=== PATIENT | female | born 1960 | race Caucasian/White ===

== ENCOUNTER 2016-10-20 19:03 | Emergency (ER) | payer OTHER ==
[~2016-10-20] VITALS: Ht 172.7 cm; Wt 104.3 kg
--- NOTE | 2016-10-20 20:37 | ED GENERAL ADULT ---
History of Present Illness General Chief Complaint: General Adult Stated Complaint: ELEVATED BP PER PT Source: patient Exam Limitations: no limitations Vital Signs & Intake/Output Vital Signs & Intake/Output Vital Signs Date Time Temp Pulse Resp B/P B/P Pulse O2 O2 Flow FiO2 Mean Ox Delivery Rate 10/20 2229 89 20 150/109 98 Room Air 10/20 2201 100 180/110 10/20 2145 100 194/110 10/20 2051 100 190/120 10/20 1926 98.3 101 16 198/112 98 Room Air ED Intake and Output 10/21 0000 10/20 1200 Intake Total Output Total Balance Patient 230 lb Weight Weight Reported by Patient Measurement Method Allergies Coded Allergies: No Known Allergies (10/20/16) Reconcile Medications Azithromycin (Zithromax) 500 MG TABLET 1 TAB PO DAILY LEFT OTITIS MEDIA Lisinopril 10 MG TABLET 1 TAB PO DAILY HYPERTENSION Triage Note: TRIAGE: ARRIVES WITH CONCERN FOR BP WHICH SHE REPORTS IS LABILE. TOOK HER HUSBANDS NORVASC 10MG AT 5PM WITH NO IMPROVEMENT. ARRIVES 198/112 MANUALLY AND HR 102. DENIES HEADACHE, NEUROS INTACT WITHOUT FOCAL DEFICITS. PUPILS EQUAL AND REATIVE. C/O LEFT EAR PAIN X2 WEEKS Triage Nurses Notes Reviewed? yes Onset: Gradual Duration: constant Timing: recent history Injury Environment: home Severity: moderate Severity Numbers: 5 HPI: Patient is a 56-year-old female with a remote history of hypertension who stated approximately 10 years ago she was on Norvasc 10 mg for only one year in which she states that her blood pressure has been stable since in which she goes to regular [facility] follow-ups. Patient does not have a primary care doctor. Patient is complaining of a gradual onset of left ear fullness and pain Patient was evaluated at urgent care facility this week and was concerned of patient's significant blood pressure elevation. Patient denies any fever chills headache blurred vision chest pain shortness breath abdominal pain nausea vomiting and is otherwise without complaints. Patient does however state that she took her 's 25 mg of Lopressor and 10 mg of Norvasc today for her elevated blood pressure noted to be 240/120 (MAURY GARDINER) Past History Travel History Traveled to [place] past 21 day No Medical History Any Pertinent Medical History? see below for history Neurological: NONE EENT: NONE Cardiovascular: hypertension Respiratory: NONE Gastrointestinal: NONE Hepatic: NONE Renal: NONE Musculoskeletal: NONE Psychiatric: NONE Endocrine: NONE Blood Disorders: NONE Cancer(s): NONE Surgical History Surgical History: non-contributory Psychosocial History What is your primary language Greenlandic Tobacco Use: Current Daily Use Daily Tobacco Use Amount/Type: => 5 Cigarettes daily ETOH Use: occasional use Illicit Drug Use: denies illicit drug use Family History Hx Contributory? No (MAURY GARDINER) Review of Systems Review of Systems Constitutional: Reports: no symptoms. EENTM: Reports: see HPI, ear pain. Respiratory: Reports: no symptoms. Cardiovascular: Reports: no symptoms. GI: Reports: no symptoms. Genitourinary: Reports: no symptoms. Musculoskeletal: Reports: no symptoms. Skin: Reports: no symptoms. Neurological/Psychological: Reports: no symptoms. Hematologic/Endocrine: Reports: no symptoms. Immunologic/Allergic: Reports: no symptoms. All Other Systems: Reviewed and Negative (MAURY GARDINER) Physical Exam Physical Exam General Appearance: no apparent distress, alert Comments: Well-developed well-nourished person in no acute distress HEENT: extraocular motion intact, no nystagmus. Pupils equally round and reactive to light and accommodation. Nose is atraumatic. External auditory canal bilateral unremarkable, left tympanic membrane noted dullness in woods color, tympanic membrane intact Pharynx normal. No swelling or edema. Neck: Supple, no lymphadenopathy, normal range of motion without pain or tenderness Back: Nontender, no CVA tenderness. Cardiovascular: Regular rate and rhythms no murmurs rubs or gallops, normal JVP Respiratory: Chest nontender. No respiratory distress.breath sounds clear to auscultation bilaterally Abdomen: Soft, nontender nondistended, no appreciable organomegaly. Normal bowel sounds. No ascites Extremity: No edema, no calf tenderness to palpation, normal and equal pulses. Neuro: Alert oriented x3, motor sensory normal, cranial nerves II through XII grossly intact. Skin: No appreciable rash on exposed skin, skin is warm and dry. Psych: Mood and affect is normal, memory and judgment is normal. Core Measures ACS in differential dx? No CVA/TIA Diagnosis: No Severe Sepsis Present: No Septic Shock Present: No (MAURY GARDINER) Progress Differential Diagnoses I considered the following diagnoses in my evaluation of the patient: [Mnire's disease, otitis media, otitis externa, tympanic membrane rupture, cancer, hypertensive urgency hypertensive emergency hypertension, end organ failure, myocardial infarction, aneurysm] Plan of Care: Orders Procedure Date/time Status TROPONIN LEVEL 10/20 1909 Complete COMPREHENSIVE METABOLIC PANEL 10/20 1909 Complete CBC WITHOUT DIFFERENTIAL 10/20 1909 Complete EKG 10/20 1909 Active Laboratory Tests 10/20/162131: CBC w Diff NO MAN DIFF REQ, RBC 5.04, MCV 93.7, MCH 31.8 H, RDW 13.0, MPV 8.5, Gran % 71.6, Lymphocytes % 22.3, Monocytes % 4.7, Eosinophils % 0.6, Basophils % 0.8, Absolute Granulocytes 7.8 H, Absolute Lymphocytes 2.4, Absolute Monocytes 0.5, Absolute Eosinophils 0.1, Absolute Basophils 0.1, PUBS MCHC 33.9 10/20/161944: Anion Gap 13, Estimated GFR > 60, BUN/Creatinine Ratio 18.3, Glucose 110 H, Calcium 9.7, Total Bilirubin 0.6, AST 24, ALT 40, Alkaline Phosphatase 81, Troponin I < 0.01, Total Protein 8.6 H, Albumin 4.3, Globulin 4.3 H, Albumin/ Globulin Ratio 1.0 L Patient upon examination was in no apparent distress is unremarkable blood work and EKG. Patient does have concerned of left otitis media. Patient does have concerns of elevated blood pressure. She was initially administered IV labetalol and by mouth lisinopril. Blood pressure had improved however still diastolic over 100. Patient then was administered IV Vasotec 10/20/2016 10:20:57 PM patient currently currently is in no apparent distress and is walking around POD 3 conversing with nursing staff and myself. Patient did have improvement of blood pressure however the diastolics still remained over 100 and which patient had requested to leave AGAINST MEDICAL ADVICE were strongly advised patient to continue to stay in the emergency room for further antihypertensive therapy however she declined patient was well aware of risks of leaving AGAINST MEDICAL ADVICE and signed AMA form. (MAURY GARDINER) Initial ED EKG: normal intervals, normal p-waves, 97 BPM, NSR (MAURY GARDINER) Departure Departure Disposition: LEFT AGAINST MEDICAL ADVICE Condition: Stable Clinical Impression Primary Impression: Left otitis media Secondary Impressions: Hypertension Referrals: SEAN RUBI,UMA Abreu PATIENT HAS NO PRIMARY CARE DR (PCP/Family) Additional Instructions: As discussed begin the prescription of lisinopril as directed for your blood pressure did begin the prescription of azithromycin as directed for the full course. Prescription is waiting at [facility]. Tomorrow YOU should receive a phone call from [facility] practice to establish a doctor. If symptoms worsen return to the emergency room. If no better in 3 days for your ear complaints follow up and establish ENT Dr. Fajardo for further evaluation treatment Departure Forms: Customer Survey General Discharge Information Prescriptions: Current Visit Scripts Lisinopril 1 TAB PO DAILY #30 TAB Azithromycin (Zithromax) 1 TAB PO DAILY #5 TAB (MAURY GARDINER) PA/CONTRACT OFFICER Co-Sign Statement Statement: ED Attending supervision documentation- [] I saw and evaluated the patient. I have also reviewed all the pertinent lab results and diagnostic results. I agree with the findings and the plan of care as documented in the PA's/CONTRACT OFFICER's documentation. [x] I have reviewed the ED Record and agree with the PA's/CONTRACT OFFICER's documentation. [] Additions or exceptions (if any) to the PAs/CONTRACT OFFICER's note and plan are summarized below: [] (WEI RUBI,JED Johnson) Critical Care Note Critical Care Note Critical Care Time: non-applicable (MAURY GARDINER)
[2016-10-20 21:41] LABS: ABSOLUTE BASOPHIL COUNT 0.1 /CUMM (0.0-0.2); ABSOLUTE EOSINOPHIL COUNT 0.1 /CUMM (0.0-0.7); ABSOLUTE GRANULOCYTE CT 7.8 /CUMM (1.4-6.5); ABSOLUTE LYMPH COUNT 2.4 /CUMM (1.2-3.4); ABSOLUTE MONOCYTE COUNT 0.5 /CUMM (0.10-0.60); BASOPHIL % 0.8 % (0.0-2.0); EOSINOPHIL % 0.6 % (0-5); GRANULOCYTE % 71.6 % (42.2-75.2); HEMATOCRIT 47.3 % (37-47); MEAN CORPUSCULAR HGB 31.8 PG (27.0-31.0); MEAN CORPUSCULAR HGB CONC 33.9 G/DL (33.0-37.0); MEAN CORPUSCULAR VOLUME 93.7 FL (81.0-99.0); MEAN PLATELET VOLUME 8.5 FL (7.4-10.4); PLATELET COUNT 308 /CUMM (130-400); RED BLOOD CELL CT 5.04 /CUMM (4.20-5.40); WHITE BLOOD CELL COUNT 10.8 /CUMM (4.8-10.8)
[2016-10-20] MEDS ORDERED: LISINOPRIL10 M1 PO (22:18)
[2016-10-20] MEDS ORDERED: ZITHROMAX500 M2 PO (22:19)
[2016-10-20 22:29] VITALS: BP 150/109
== END 2016-10-20 22:40 | disposition left against medical advice (07) ==
LOC: ERH 19:03
PROVIDERS: Pediatrics
DX: H66.92 Otitis media, unspecified, left ear (principal); I10 Essential (primary) hypertension
CPT/HCPCS: 93005; 93010; 96374; 96375